=== PATIENT | female | born 1945 | race Caucasian/White ===

== ENCOUNTER 2022-10-20 19:20 | Emergency (ER) | payer MEDICARE, SELFPAY ==
--- NOTE | ~2022-10-20 | XR_ITS ---
EXAMINATION: XR chest 2V 10/20/2022 19:51 INDICATION: Chest pain PROCEDURE: 2 view chest COMPARISON: No prior studies for comparison. FINDINGS: The lungs are clear. The cardiomediastinal silhouette is within normal limits. There are no pleural effusions. There is no pneumothorax suspected. IMPRESSION: 1: NO ACUTE CARDIOPULMONARY DISEASE. Reviewed, dictated and finalized at location A. CONTOUR GRINDER
--- NOTE | 2022-10-20 19:21 | ECG_ITS ---
Measurements Intervals [place] Rate: 75 P: 57 OR: 154 QRS: 66 QRSD: 90 T: 81 QT: 362 QTc: 406 Interpretive Statements SINUS RHYTHM POSSIBLE RIGHT VENTRICULAR CONDUCTION DELAY [RSR (QR) IN V1/V2] NO PREVIOUS ECG AVAILABLE FOR COMPARISON Electronically Signed On 10-20-2022 20:15:02 CHILD NEUROLOGIST by Shasha Palmer M.D.
[2022-10-20 19:41] VITALS: BP 150/96; PULSE 79; RESP 16; TEMP 36.5; O2SAT 100
[2022-10-20 19:46] LABS: Basophils Percent Auto 0.5 % (0.2-1.2); Eosinophils Absolute Auto 0.2 K/mm3 (0-0.3); Eosinophils Percent Auto 2.3 % (0-4.4); Hematocrit 38.6 % (37.0-47.0); Hemoglobin 12.8 g/dL (12.0-15.0); Immature Granulocyte Absolute 0.01 K/mm3 (0.00-0.031); Immature Granulocyte Percent A 0.1 % (0-0.5); Lymphocytes Absolute Auto 2.64 K/mm3 (0.9-3.2); Lymphocytes Percent Auto 33.3 % (18.3-44.2); Mean Corpuscular HGB Conc 33.2 g/dl (32-36); Mean Corpuscular Hemoglobin 30.3 pg (26-34); Mean Corpuscular Volume 91.5 fl (80-100); Mean Platelet Volume 10.2 fl (7.4-10.4); Monocytes Absolute Auto 0.5 K/mm3 (0.1-0.6); Monocytes Percent Auto 6.7 % (2.6-8.5); Neutrophils Absolute Auto 4.5 K/mm3 (1.3-6.7); Neutrophils Percent Auto 57.1 % (45.5-73.1); Platelet Count Result 246 k/mm3 (150-375); Red Blood Count 4.22 M/mm3 (4.2-5.4); Red Cell Distribution Width 12.8 % (11.5-14.5); White Blood Count 7.9 K/mm3 (4.5-10.0)
[2022-10-20 19:58] LABS: Alanine Aminotransferase 17 U/L (6-35); Albumin Level 4.7 g/dL (3.5-5.1); Alkaline Phosphatase 53 U/L (38-126); Anion Gap 6 mmol/L (8-16); Aspartate Amino Transferase 27 U/L (14-36); Bilirubin,Total 0.5 mg/dL (0.2-1.3); Blood Urea Nitrogen 13 mg/dL (7-17); Carbon Dioxide 27 mmol/L (22-30); Chloride 97 mmol/L (98-107); Estimated Glomerular Filt Rate > 60; Glucose 89 mg/dL (65-110); Lipase 70 U/L (23-300); Potassium 3.8 mmol/L (3.4-5.0); Sodium 130 mmol/L (137-145)
[2022-10-20 19:59] LABS: Partial Thromboplastin Time 27.5 SECONDS (22.3-36.8); Prothrombin Time 12.9 Seconds (11.1-14.7)
[2022-10-20 20:08] LABS: Troponin I < 0.012 ng/mL (0.000-0.034)
[2022-10-20 22:50] VITALS: BP 128/81; PULSE 82; RESP 16; O2SAT 97
[2022-10-20 23:24] LABS: Troponin I < 0.012 ng/mL (0.000-0.034)
--- NOTE | 2022-10-21 00:20 | ED.GENADULT ---
HPI - General Adult General Chief complaint: Chest Pain Stated complaint: chest pain since last night Time Seen by Provider: 10/20/22 23:11 History of Present Illness HPI narrative: This is a 77-year-old female presenting to ED with chief complaint of chest pain. Chest pain started last night while she was watching TV. She described as a pressure that thomas up to her throat. Was 5/10 in intensity. Lasted for about 10 or 15 minutes. She took an aspirin and then it resolved. Patient says that she is experiencing this about 3 times a year for years. There are no exacerbating/relieving factors. Not associated with vomiting diaphoresis fever chills cough numbness tingling or weakness to any extremity. The pain has completely resolved at this point. The patient texted her primary care physician via her [employer] l[employer]pez and he told her to go to the emergency room for evaluation Related Data Allergies Allergy/AdvReac Type Severity Reaction Status Date / Time No Known Allergies Allergy Verified 10/20/22 19:21 [facility] Past Medical History Medical History (Updated 10/21/22 @ 00:27 by Michael Llamas MD) Anxiety Osteopenia Social History Social History (Updated 10/21/22 @ 00:23 by Michael Llamas MD) Social History: occasional alcohol, long-time smoker, denies drug use Exam Narrative: APPEARANCE: No apparent distress. Head: atraumatic. EYES: EOMI, NOSE: Atraumatic NECK: Trachea midline RESPIRATORY: No increased rate of breathing, clear to auscultation bilaterally CARDIOVASCULAR: RRR,, equal pulses in all extremities, good color ABDOMINAL: Non-distended, no guarding or rebound MUSCULOSKELETAl: No obvious deformities NEURO: Alert. Cranial nerves 2-12 grossly intact. Sensation light touch, motor function cerebellar function intact for 4 extremities. Gait exam was normal. SKIN:: Warm, dry. Normal color PSYCHIATRIC: Normal affect Course Vital Signs Vital signs: Vital Signs Temperature 97.7 F 10/20/22 19:41 Pulse Rate 79 10/20/22 19:41 Respiratory Rate 16 10/20/22 19:41 Blood Pressure 150/96 H 10/20/22 19:41 Pulse Oximetry 100 10/20/22 19:41 Oxygen Delivery Room Air 10/20/22 19:41 Temperature 97.7 F 10/20/22 19:41 Pulse Rate 82 10/20/22 22:50 Respiratory Rate 16 10/20/22 22:50 Blood Pressure 128/81 10/20/22 22:50 Pulse Oximetry 97 10/20/22 22:50 Oxygen Delivery Room Air 10/20/22 19:41 Medical Decision Making MDM Narrative Medical decision making narrative: -Presentation: 77-year-old female with anxiety presenting ED with chest pressure that lasted for 10 or 15 minute before resolving. -DDX includes but is not limited to: Anxiety, ACS, pneumonia, dissection -Co-morbidities complicating care: anxiety, long-time smoker -Social determinants of health: patient lives at home with her daughters -External Chart Review: CT chestscan from [facility] in September- showed chronic lung damage from smoking but no other acute findings. -Hx from independent Sources: daughter -Discussion of Management/ Consultants: none -Independent interpretation of studies: lab work was significant for hyponatremia and hypochloremia. No increase in BUN or creatinine. Patient has been encouraged to drink water. Troponins negative x2. Independent EKG interpretation: Rhythm [sinus], Rate [75], [place] -[normal], [place] -[normal], QRS [narrow], QTC [normal], T waves -[negative for concerning inversions], ST Segments - [Negative for concerning elevations] Final interpretations: [Normal Sinus Rhythm] chest x-ray showed no acute cardiopulmonary process. Dx tests considered but not ordered: CTA was considered but the patient is well appearing, her chest pain is not described as ripping or tearing she has no neurologic deficits. Aortic dissection unlikely. Patient has no risk factors for D-dimer and is not complaining of shortness of breath and is not tachycardic. Patient has had recurrent sym
[2022-10-21 00:52] VITALS: BP 129/80; PULSE 72; RESP 16; O2SAT 98
== END 2022-10-21 00:50 | disposition home or self-care (01) ==
PROVIDERS: Emergency Medicine; Emergency Provider Emergency Medicine; PCP Internal Medicine
DX: R07.89 Other chest pain (principal); M85.80 Other specified disorders of bone density and structure, unspecified site; R94.31 Abnormal electrocardiogram [ECG] [EKG]
CPT/HCPCS: 36415; 71046; 80053; 83690; 84484; 85025; 85610; 85730; 93005; 99284

== ENCOUNTER 2023-07-22 19:03 | Emergency (ER) | payer MEDICARE, SELFPAY ==
--- NOTE | ~2023-07-22 | XR_ITS ---
EXAMINATION: XR chest 2V Exam Date/Time: 07/22/2023 19:15 [employer]ORER HISTORY: chest pain THAT RADIATES BETWEEN SCAPULA WITH COUGH Comparison: 10/20/2022. RESULT: Lines, tubes, and devices: None. Lungs and pleura: Senescent and emphysematous change. Cardiomediastinal silhouette: Stable. Other: No acute osseous or upper abdominal finding. IMPRESSION: No acute cardiopulmonary process. Reviewed, dictated and finalized at location K. TRY FARM LABORER
[2023-07-22 19:04] VITALS: BP 151/76; PULSE 99; RESP 18; TEMP 36.2; O2SAT 98
--- NOTE | 2023-07-22 19:07 | ECG_ITS ---
Measurements Intervals [place] Rate: 115 P: 26 IA: 116 QRS: 54 QRSD: 90 T: 79 QT: 330 QTc: 457 Interpretive Statements SINUS TACHYCARDIA WITH SHORT IA INTERVAL POSSIBLE LEFT ATRIAL ENLARGEMENT RSR' IN V1 OR V2, CONSIDER RIGHT VENTRICULAR HYPERTROPHY OR RIGHT VCD BASELINE ARTIFACT- AVL, V5-V6 ABNORMAL ECG COMPARED TO ECG 10/20/2022 19:35:31 SINUS TACHYCARDIA NOW PRESENT Electronically Signed On 07-22-2023 21:01:48 MACHINIST/MACHINE BUILDER by Enrique De La Fuente D.O.
[2023-07-22] MEDS: ASPIRIN 81 MG CHEWABLE TABLET 324 MG PO (19:17)
[2023-07-22 19:27] LABS: Basophils Percent Auto 0.2 % (0.2-1.2); Hematocrit 35.9 % (37.0-47.0); Hemoglobin 11.7 g/dL (12.0-15.0); Immature Granulocyte Absolute 0.01 K/mm3 (0.00-0.031); Immature Granulocyte Percent A 0.2 % (0-0.5); Lymphocytes Absolute Auto 0.54 K/mm3 (0.9-3.2); Lymphocytes Percent Auto 10.6 % (18.3-44.2); Mean Corpuscular HGB Conc 32.6 g/dl (32-36); Mean Corpuscular Hemoglobin 28.7 pg (26-34); Mean Corpuscular Volume 88.2 fl (80-100); Monocytes Absolute Auto 0.8 K/mm3 (0.1-0.6); Monocytes Percent Auto 14.7 % (2.6-8.5); Neutrophils Absolute Auto 3.8 K/mm3 (1.3-6.7); Neutrophils Percent Auto 74.3 % (45.5-73.1); Platelet Count Result 218 k/mm3 (150-375); Red Blood Count 4.07 M/mm3 (4.2-5.4); Red Cell Distribution Width 13.1 % (11.5-14.5); White Blood Count 5.1 K/mm3 (4.5-10.0)
[2023-07-22 19:38] LABS: Alanine Aminotransferase 16 U/L (6-35); Albumin Level 4.5 g/dL (3.5-5.1); Alkaline Phosphatase 61 U/L (38-126); Anion Gap 13 mmol/L (8-16); Aspartate Amino Transferase 28 U/L (14-36); Bilirubin,Total 0.7 mg/dL (0.2-1.3); Blood Urea Nitrogen 14 mg/dL (7-17); Calcium 9.1 mg/dL (8.4-10.2); Carbon Dioxide 22 mmol/L (22-30); Chloride 94 mmol/L (98-107); Estimated Glomerular Filt Rate > 60; Glucose 100 mg/dL (65-110); INR 1.1; Lipase 45 U/L (23-300); Partial Thromboplastin Time 29.5 SECONDS (22.3-36.8); Potassium 3.9 mmol/L (3.4-5.0); Prothrombin Time 14.3 Seconds (11.1-14.7); Sodium 129 mmol/L (137-145)
[2023-07-22 19:49] LABS: Troponin I < 0.012 ng/mL (0.000-0.034)
--- NOTE | 2023-07-22 20:00 | ED.URI ---
HPI - URI/Sore Throat General Chief Complaint: Chest Pain Stated Complaint: cough Time Seen by Provider: 07/22/23 19:11 Source: patient and family (daughter) Limitations: no limitations History of Present Illness HPI Narrative: Patient is a 78-year-old female presents to the emergency department with multiple complaints. Patient states yesterday she developed a cough productive of minimal white sputum, has had decreased oral intake for the past 2 days because she has an appetite, has generalized body aches associated with this, Feeling more tired lately and also has been having some generalized headaches in addition is also experiencing some right upper back pain that is pleuritic in addition she is also experiencing some rhinorrhea and congestion. Patient denies any sick contacts. Patient states that she was seen at urgent care and had COVID and flu testing was negative today. Patient admits to being a smoker. Patient denies history of high blood pressure or diabetes or high cholesterol or any heart disease. Patient states that she has not had any vomiting, diarrhea, melena, hematochezia, urinary discomfort, chest pain, shortness of breath, numbness, weakness, vision changes, difficulty swallowing, abdominal pain, nausea, ear pain, rash. Patient denies taking any medications for her discomfort of the generalized body aches. Related Data Allergies Allergy/AdvReac Type Severity Reaction Status Date / Time No Known Allergies Allergy Verified 10/20/22 19:21 Review of Systems Review of Systems: A 10 system review of systems was completed on the patient and is negative except for what is stated in the HPI. Nursing and ancillary documentation was reviewed. PMFSH Past Medical History Medical History (Updated 07/23/23 @ 00:00 by Melia Arias) Anxiety Osteopenia Social History Social History (Updated 10/21/22 @ 00:23 by Michael Llamas MD) Social History: occasional alcohol, long-time smoker, denies drug use Comments At time of signature, I have reviewed and agree with nursing past medical, surgical, social and family history unless otherwise noted. Please see the nursing chart for further information. There is no relevant family history pertinent to the presenting complaint. Exam Narrative: CONST: No acute distress. Well nourished. HENMT: Head is normocephalic and atraumatic. Tacky mucous membranes. No posterior oropharynx erythema. Mild nasal congestion. EYES: No conjunctival icterus, injection, or pallor. PERRL. NECK: No meningeal signs. No palpable cervical lymphadenopathy. RESP: Able to speak in full sentences. Normal respiratory effort. CTAB. CARDIO: Regular rate. Regular rhythm. 2+ DP and radial pulses bilaterally. GI: Nondistended. No tenderness to palpation. Soft. : No CVA tenderness to palpation. SKIN: No rashes or lesions noted on exposed skin. NEURO: Oriented x3. Moves all extremities. Sensation intact to light touch. EXTREM/MSK/BACK: No pedal edema. No midline vertebral tenderness to palpation or step-offs. Mild right medial scapular border tenderness to palpation. PSYCH: Normal affect. Course Vital Signs Vital signs: Vital Signs Temperature 97.2 F L 07/22/23 19:04 Pulse Rate 99 07/22/23 19:04 Respiratory Rate 18 07/22/23 19:04 Blood Pressure 151/76 H 07/22/23 19:04 Pulse Oximetry 98 07/22/23 19:04 Oxygen Delivery Room Air 07/22/23 19:04 Temperature 97.2 F L 07/22/23 19:04 Pulse Rate 86 07/22/23 21:01 Respiratory Rate 18 07/22/23 21:01 Blood Pressure 153/79 H 07/22/23 21:00 Pulse Oximetry 92 07/22/23 21:01 Oxygen Delivery Room Air 07/22/23 19:04 MDM - URI/Sore Throat MDM Narrative Medical decision making narrative: Patient presents with the above complaint. Initial vitals are remarkable for no significant abnormalities. Physical examination as noted above. Plan discussed: Laboratory analysis, EKG, chest x-ray, 1 L bolus IV
[2023-07-22 20:23] LABS: D Dimer 0.79 ug/mL (<0.48)
[2023-07-22] MEDS: SODIUM CHLORIDE 0.9% IV 1,000 ML 999 ML IV CONT (20:27)
[2023-07-22] MEDS: ACETAMINOPHEN 500 MG TABLET 1000 MG PO (20:27)
[2023-07-22 20:28] VITALS: BP 141/82; PULSE 99; RESP 17; O2SAT 97
[2023-07-22 20:40] LABS: Magnesium 1.9 mg/dL (1.6-2.3)
[2023-07-22 20:47] LABS: Appearance Urine Cloudy (Clear); Bacteria Urine None Seen /hpf; Bilirubin Urine Negative (Negative); Blood Urine Trace (Negative); Color Urine Yellow (Yellow); Glucose Urine UA Negative (Negative); Ketones Urine 3+ mg/dL (Negative); Leukocyte Esterase Ur Negative LEU/UL (Negative); Nitrate Urine Negative (Negative); Non Pathogenic Casts 0-2; Protein Urine 1+ mg/dL (Negative); Specific Grav Ur 1.023 (1.001-1.035); Squamous Epithelial Cell Urine Few /hpf (Few); WBC Urine 0-5 /hpf
[2023-07-22 20:50] VITALS: PULSE 86; RESP 19; O2SAT 97
[2023-07-22 20:52] LABS: Add Urine Microscopic? YES
[2023-07-22 21:00] VITALS: BP 153/79; PULSE 86; RESP 21; O2SAT 96
[2023-07-22 21:01] VITALS: PULSE 86; RESP 18; O2SAT 92
== END 2023-07-22 22:15 | disposition home or self-care (01) ==
PROVIDERS: Emergency Medicine; Emergency Provider Student in an Organized Health Care Education/Training Program; PCP Internal Medicine
DX: J06.9 Acute upper respiratory infection, unspecified (principal); M85.80 Other specified disorders of bone density and structure, unspecified site; R00.0 Tachycardia, unspecified; R94.31 Abnormal electrocardiogram [ECG] [EKG]; F17.209 Nicotine dependence, unspecified, with unspecified nicotine-induced disorders
CPT/HCPCS: 36415; 71046; 80053; 81001; 83690; 83735; 84484; 85025; 85380; 85610; 85730; 93005; 96360; 99284; A9270; J7030